=== PATIENT | female | born 1975 | race Caucasian/White ===

== ENCOUNTER 2017-12-25 13:00 | Outpatient (RCR) | payer OTHER | END 2018-01-12 | disposition home or self-care (01) | LOC: MERGE 13:00 → CARD 13:00 | PROVIDERS: ATTEND Internal Medicine Interventional Cardiology | DX: R07.9 Chest pain, unspecified (principal); R42 Dizziness and giddiness; R06.02 Shortness of breath; I10 Essential (primary) hypertension; E78.5 Hyperlipidemia, unspecified; E66.9 Obesity, unspecified | CPT/HCPCS: 93225; 93226; 93306 ==

== ENCOUNTER → 2018-01-18 | Outpatient (CLI) | payer OTHER ==
[~2018-01-18] VITALS: Ht 170.2 cm; Wt 93.9 kg
[~2018-01-18] MED LIST: CATHETER FLUSH 10 ML SYR IV PRN; REGADENOSON 0.4 MG/5 ML SYR (LEXISCAN) IV ONE
[2018-01-18 09:57] VITALS: BP 128/79
[2018-01-18 09:58] VITALS: BP 147/75
[2018-01-18 14:16] VITALS: BP 128/79
--- NOTE | 2018-01-18 14:16 | Cardiology Stress Test Report ---
Stress Test Report Type of NM Stress Test: Test Type: LEXISCAN 0.4MG/5ML Date of Procedure/Referring: Date of Procedure: Jan 18, 2018 PCP Linda Augustin MD Admitting Physician [place] Indications: Chest pain Baseline Heart Rate: 68 Baseline Blood Pressure: Blood Pressure Systolic: 128 Blood Pressure Diastolic: 79 Baseline EKG: Baseline EKG: sinus rhythm Summary & Conclusion: Summary: The patient was brought to the stress lab after informed consent was taken. Stress test was performed according to the Lexiscan protocol. 0.4 mg of IV Lexiscan was given. Low-grade exercise was performed. Baseline EKG showed sinus rhythm at 68 BPM. Initial blood pressure was 128/79 mmHg. Maximum heart rate was 114 bpm and blood pressure 155/76 mmHg. Patient did not have any chest pain, arrhythmias or ST segment changes during the stress test. 9.85 mCi of Myoview were given for rest imaging and 29.1 mCi of Myoview given for stress imaging. Transient ischemic dilatation score 1.02 , EF 70 percent. Normal wall motion. Normal myocardial perfusion imaging during rest and stress. Conclusion: Pharmacological stress test was negative for ischemia. Normal LV function with no wall motion abnormalities. Normal myocardial perfusion imaging during rest and stress. Linda AUGUSTIN MD Jan 18, 2018 2:16 pm
== END ==
LOC: EDUNIT# 07:45 → MERGE 07:45 → CARD 07:59
PROVIDERS: ATTEND Internal Medicine Interventional Cardiology
DX: R42 Dizziness and giddiness (principal); R06.02 Shortness of breath; R07.9 Chest pain, unspecified; I10 Essential (primary) hypertension; E78.5 Hyperlipidemia, unspecified; E66.9 Obesity, unspecified
CPT/HCPCS: 78452; 93017

== ENCOUNTER → 2018-02-16 | Outpatient (CLI) | payer OTHER ==
[~2018-02-16] MED LIST changes: -CATHETER FLUSH 10 ML SYR IV PRN; -REGADENOSON 0.4 MG/5 ML SYR (LEXISCAN) IV ONE; +RT-ALBUTEROL SULF 2.5 MG/3 ML PRE-MIX VIAL INH ONE
== END ==
LOC: RT 11:32
PROVIDERS: ATTEND Internal Medicine Nephrology
DX: I27.20 Pulmonary hypertension, unspecified (principal); R06.02 Shortness of breath
CPT/HCPCS: 94060; 94726; 94729

== ENCOUNTER → 2018-12-05 | Outpatient (CLI) | payer OTHER ==
[2018-12-05 07:12] LABS: CHOLESTEROL 179 MG/DL (< 200); HDL CHOLESTEROL 43 MG/DL (40-60); TRIGLYCERIDES 209 MG/DL (<150); VLDL CHOLESTEROL 42 MG/DL (5-40)
== END ==
LOC: LAB 06:43
PROVIDERS: ATTEND Internal Medicine Interventional Cardiology
DX: E78.5 Hyperlipidemia, unspecified (principal)
CPT/HCPCS: 36415; 80061

== ENCOUNTER 2019-05-06 09:39 | Emergency (ER) | payer OTHER ==
[~2019-05-06] VITALS: Ht 172 cm; Wt 96.8 kg
[2019-05-06] MEDS ORDERED: ONDANSETRON 4 MG (ZOFRAN) ORAL DISSOLVE TAB PO ONE (10:45)
[2019-05-06] MEDS ORDERED: MECLIZINE 25 MG (ANTIVERT) TAB PO ONE (10:45)
--- NOTE | 2019-05-06 10:52 | ED General ---
General Chief Complaint: Dizziness/Syncope Stated Complaint: DIZZINESS;NAUSEA Nursing Triage Note: PT PRESENTS TO ED WITH COMPLAINTS OF SUDDEN DIZZINESS STARTING ON 05/03 AND HAS SINCE DEVELOPED N/V. PT REPORTS DIZZINESS SEEMS TO IMPROVE WHEN LYING STILL BUT GETS WORSE WITH ANY MOVEMENT. PT DENIES FEELING LIKE TO ROOM IS SPINNING BUT REPORTS SHE FEELS HER BALANCE IS OFF. Nursing Sepsis Screen: No Definite Risk Source of Information: Patient Exam Limitations: No Limitations History of Present Illness Date Seen by Provider: May 06, 2019 Time Seen by Provider: 10:35 Initial Comments Patient has ER by private conveyance with chief complaint of the past week having some cough and cold syndrome with intermittent, nonproductive cough. No fevers or chills. She did have a night sweat today. She's not having any shortness of breath or history of asthma COPD. She knows that when she changes positions or rolls over she's been getting some dizziness, vertigo feeling the room move. She has not tried anything for it yet. She says the dizziness makes her nauseated and she vomits. After she vomits then she said she had sweats. She has never had vertigo before. She does feel some pressure in the ears bilaterally. No sinus pain or discharge. Allergies and Home Medications Allergies Coded Allergies: No Known Drug Allergies (Unverified , 01/18/18) Home Medications No Active Prescriptions or Reported Meds Patient Home Medication List Home Medication List Reviewed: Yes Review of Systems Review of Systems Constitutional: No chills, No diaphoresis EENTM: No ear discharge, No ear pain Respiratory: No cough, No short of breath Cardiovascular: No chest pain, No edema Gastrointestinal: No abdominal pain, No constipation, No nausea, No vomiting Genitourinary: No discharge, No dysuria Musculoskeletal: No back pain, No joint pain Skin: No pruritus, No rash Psychiatric/Neurological: Denies Headache, Denies Numbness Past Ygyfsos-Fxxvwj-Ictfid Hx Patient Social History Alcohol Use: Occasionally Uses Recreational Drug Use: No Smoking Status: Never a Smoker Recent Foreign Travel: No Contact w/Someone Who Travel: No Recent Infectious Disease Expo: No Physical Abuse: No Sexual Abuse: No Mistreated: No Fear: No Physical Exam Vital Signs Vital Signs - First Documented 05/06/19 10:01 Temp 36.0 Pulse 96 Resp 18 B/P (MAP) 144/97 (113) Pulse Ox 97 Capillary Refill : Less Than 3 Seconds Height, Weight, BMI Height: 5'7.00" Weight: 207lbs. 0.0oz. [id number]; 32.00 BMI Method: General Appearance: WD/WN, Mild Distress Eyes: Bilateral Eye Normal Inspection, Bilateral Eye PERRL, Bilateral Eye EOMI HEENT: PERRL/EOMI, Pharynx Normal, Moist Mucous Membranes Neck: Full Range of Motion, Normal Inspection Respiratory: Lungs Clear, Normal Breath Sounds, No Accessory Muscle Use, No Respiratory Distress Cardiovascular: Regular Rate, Rhythm, No Edema Extremity: Normal Capillary Refill, Normal Inspection, No Pedal Edema Neurologic/Psychiatric: Alert, Oriented x3, No Motor/Sensory Deficits Skin: Normal Color, Warm/Dry Progress/Results/Core Measures Suspected Sepsis Recent Fever Within 48 Hours: No Infection Criteria Present: None New/Unexplained Altered Menta: No Sepsis Screen: No Definite Risk SIRS Temperature: Pulse: 96 Respiratory Rate: 18 Blood Pressure 144 /97 Mean: 113 Results/Orders My Orders Orders - LISA CHEUNG Meclizine Tablet (Antivert Tablet) (05/06/19 10:45) Ondansetron Oral Dissolve Tab (Zofran (05/06/19 10:45) Vital Signs/I&O 05/06/19 10:01 Temp 36.0 Pulse 96 Resp 18 B/P (MAP) 144/97 (113) Pulse Ox 97 Capillary Refill : Less Than 3 Seconds Blood Pressure Mean: 113 Progress Note : Time: 10:50 Progress Note Plan and meclizine. We'll set her up for outpatient treatment with these medicines. We've given her return precautions. Labyrinthitis. Departure Impression Primary Impression: Vertigo Additional Impressions: Labyrinthitis of both ears Nausea & vomiting Qualified Codes: R11.2 - Nausea with vomiting, unspecified Upper respiratory tract infection Qualified Codes: J06.9 - Acute upper respiratory infection, unspecified Disposition: HOME, SELF-CARE Condition: Stable Departure-Patient Inst. Decision time for Depature: 10:51 Referrals: [facility]/JUAN RAMON (PCP) Primary Care Physician GREER LEIJA APRN (Family) Primary Care Physician Patient Instructions: Vertigo (a Type of Dizziness) (DC), Labyrinthitis Add. Discharge Instructions: Drink lots of fluids. Tylenol and ibuprofen as necessary for pain or fever. Humidifiers and vapor rubs can be helpful for your cough and cold syndrome. Meclizine 1 tablet every 6 hours as needed for dizziness. Ondansetron one tablet every 6 hours under the tongue for nausea or vomiting. All discharge instructions reviewed with patient and/or family. Voiced understanding. Scripts Ondansetron (Ondansetron Odt) 4 Mg Tab.rapdis 4 MG PO Q6H PRN for NAUSEA/VOMITING, #20 TAB 0 Refills Prov: LISA CHEUNG 05/06/19 Meclizine HCl (Meclizine HCl) 25 Mg Tablet 25 MG PO Q6H PRN for DIZZINESS, #30 TAB 0 Refills Prov: LISA CHEUNG 05/06/19 Work/School Note: Work Release Form Date Seen in the Emergency Department: May 06, 2019 Return to Work: May 10, 2019 Restrictions: No Restrictions LISA CHEUNG May 06, 2019 10:52
[2019-05-06] MEDS ORDERED: MECL-106 PO (10:53)
[2019-05-06] MEDS ORDERED: ONDA4TAB11 PO (10:53)
[2019-05-06 11:16] VITALS: BP 136/89
== END 2019-05-06 11:16 | disposition home or self-care (01) ==
LOC: EDUNIT# 09:39 → ER 09:40
DX: H83.03 Labyrinthitis, bilateral (principal); J06.9 Acute upper respiratory infection, unspecified
CPT/HCPCS: 99283

== ENCOUNTER → 2020-06-11 | Outpatient (CLI) | payer BC, OTHER ==
[~2020-06-11] MED LIST changes: +ACHD5005 PO; +IBUP-2473 PO; +LEVO750T39 PO; +MECL-149 PO; +ONDA4TAB11 PO; +ONDA8TAB13 PO; -RT-ALBUTEROL SULF 2.5 MG/3 ML PRE-MIX VIAL INH ONE
--- NOTE | 2020-06-11 08:43 | Diagnostic Imaging Report ---
INDICATION: Right upper quadrant pain Ultrasound of the right upper quadrant and gallbladder was performed in the routine fashion. The liver shows diffuse increased echogenicity compatible with fatty infiltration. Liver appears somewhat prominent in size. There is no focal liver lesion. Gallbladder is unremarkable. No stones or wall thickening. Common duct measured 4 mm. The pancreas is not well seen due to overlying gas. Visualized portions of aorta and IVC are normal. The right kidney was normal measured 11.1 cm in length. There is no ascites. Portal vein is patent with hepatopetal flow. IMPRESSION: Liver shows diffuse fatty infiltration and some enlargement. No focal liver lesion is seen. Gallbladder appears unremarkable. Dictated by: Dictated on workstation # [id number]
== END ==
LOC: RAD 08:00
PROVIDERS: ATTEND Nurse Practitioner
DX: K76.0 Fatty (change of) liver, not elsewhere classified (principal)
CPT/HCPCS: 76705

== ENCOUNTER 2020-06-12 14:35 | Emergency (ER) | payer BC ==
[~2020-06-12] VITALS: Ht 172 cm; Wt 96.0 kg
[~2020-06-12 14:35] MED LIST changes: -ACHD5005 PO; -IBUP-2473 PO; -LEVO750T39 PO; -ONDA8TAB13 PO
[2020-06-12] MEDS ORDERED: ONDANSETRON 4 MG/2 ML (SDV) Z0FRAN IVP ONE (15:00)
[2020-06-12] MEDS ORDERED: KETOROLAC 30 MG/ML VIAL IVP ONE (15:00)
--- NOTE | 2020-06-12 15:00 | ED Abdominal Pain ---
General Chief Complaint: Abdominal/GI Problems Stated Complaint: BERG,MUSCLE PAIN Nursing Triage Note: PT PRESENTS TO ED FOR RIGHT ABD. PAIN X'S 4 DAYS. PT ALSO REPORTS HEADACHE. Sepsis Screen: No Definite Risk Source of Information: Patient Exam Limitations: No Limitations History of Present Illness Date Seen by Provider: Jun 12, 2020 Time Seen by Provider: 15:00 Initial Comments To ER with right-sided abdominal pain, present for 4 days. She also has a headache. She has nausea but no vomiting. No bowel changes no dysuria. She had an outpatient ultrasound yesterday and was told looked okay. Timing/Duration: 3-4 Days Severity/Quality: Moderate Location: Generalized Abdomen Radiation: No Radiation Activities at Onset: None Associated Symptoms: Nausea/Vomiting Allergies and Home Medications Allergies Coded Allergies: No Known Drug Allergies (Unverified , 01/18/18) Home Medications Meclizine HCl 25 Mg Tablet, 25 MG PO Q6H PRN for DIZZINESS Prescribed by: LISA CHEUNG on 05/06/19 1053 Ondansetron 4 Mg Tab.rapdis, 4 MG PO Q6H PRN for NAUSEA/VOMITING Prescribed by: LISA CHEUNG on 05/06/19 1053 Patient Home Medication List Home Medication List Reviewed: Yes Review of Systems Review of Systems Constitutional: see HPI EENTM: No Symptoms Reported Respiratory: No Symptoms Reported Cardiovascular: No Symptoms Reported Gastrointestinal: See HPI, Abdominal Pain Genitourinary: No Symptoms Reported Musculoskeletal: no symptoms reported Skin: no symptoms reported Psychiatric/Neurological: No Symptoms Reported Endocrine: No Symptoms Reported Hematologic/Lymphatic: No Symptoms Reported Past Zwapfgm-Qjqgdu-Yneonm Hx Patient Social History Alcohol Use: Denies Use Smoking Status: Never a Smoker Recent Infectious Disease Expo: No Physical Exam Vital Signs Vital Signs - First Documented 06/12/20 14:45 Temp 37.1 Pulse 123 Resp 20 B/P (MAP) 143/76 (98) Pulse Ox 97 O2 Delivery Room Air Capillary Refill : Less Than 3 Seconds Height/Weight/BMI Height: 5'7.00" Weight: 207lbs. 0.0oz. [id number]; 32.00 BMI Method: General Appearance: WD/WN, no apparent distress Respiratory: lungs clear, normal breath sounds, no respiratory distress, no accessory muscle use Gastrointestinal: normal bowel sounds, soft, tenderness Extremities: normal range of motion, non-tender Neurologic/Psychiatric: alert, normal mood/affect, oriented x 3 Skin: normal color, warm/dry Progress/Results/Core Measures Results/Orders Lab Results Laboratory Tests Test 06/12/20 15:00 06/12/20 16:01 Range/Units White Blood Count 10.0 4.3-11.0 10^3/uL Red Blood Count 4.24 3.80-5.11 10^6/uL Hemoglobin 13.4 11.5-16.0 g/dL Hematocrit 38 35-52 % Mean Corpuscular Volume 90 80-99 fL Mean Corpuscular Hemoglobin 32 25-34 pg Mean Corpuscular Hemoglobin Concent 35 32-36 g/dL Red Cell Distribution Width 12.2 10.0-14.5 % Platelet Count 145 130-400 10^3/uL Mean Platelet Volume 10.0 9.0-12.2 fL Immature Granulocyte % (Auto) 1 % Neutrophils (%) (Auto) 80 H 42-75 % Lymphocytes (%) (Auto) 12 12-44 % Monocytes (%) (Auto) 7 0-12 % Eosinophils (%) (Auto) 0 0-10 % Basophils (%) (Auto) 0 0-10 % Neutrophils # (Auto) 8.0 H 1.8-7.8 10^3/uL Lymphocytes # (Auto) 1.2 1.0-4.0 10^3/uL Monocytes # (Auto) 0.7 0.0-1.0 10^3/uL Eosinophils # (Auto) 0.0 0.0-0.3 10^3/uL Basophils # (Auto) 0.0 0.0-0.1 10^3/uL Immature Granulocyte # (Auto) 0.1 0.0-0.1 10^3/uL Sodium Level 129 L 135-145 MMOL/L Potassium Level 3.6 3.6-5.0 MMOL/L Chloride Level 97 L 98-107 MMOL/L Carbon Dioxide Level 22 21-32 MMOL/L Anion Gap 10 5-14 MMOL/L Blood Urea Nitrogen 6 L 7-18 MG/DL Creatinine 1.02 0.60-1.30 MG/DL Estimat Glomerular Filtration Rate 58 BUN/Creatinine Ratio 6 Glucose Level 259 H 70-105 MG/DL Calcium Level 9.3 8.5-10.1 MG/DL Corrected Calcium 9.6 8.5-10.1 MG/DL Total Bilirubin 0.6 0.1-1.0 MG/DL Aspartate Amino Transf (AST/SGOT) 43 H 5-34 U/L Alanine Aminotransferase (ALT/SGPT) 68 H 0-55 U/L Alkaline Phosphatase 112 40-136 U/L Total Protein 7.3 6.4-8.2 GM/DL Albumin 3.6 3.2-4.5 GM/DL Urine Color YELLOW Urine Clarity SL CLOUDY Urine pH 6.5 5-9 Urine Specific Devers <=1.005 1.016-1.022 Urine Protein 1+ H NEGATIVE Urine Glucose (UA) NEGATIVE NEGATIVE Urine Ketones NEGATIVE NEGATIVE Urine Nitrite NEGATIVE NEGATIVE Urine Bilirubin NEGATIVE NEGATIVE Urine Urobilinogen 2.0 < = 1.0 MG/DL Urine Leukocyte Esterase NEGATIVE NEGATIVE Urine RBC (Auto) NEGATIVE NEGATIVE Urine RBC NONE /HPF Urine WBC 5-10 H /HPF Urine Squamous Epithelial Cells 10-25 H /HPF Urine Crystals NONE /LPF Urine Bacteria FEW H /HPF Urine Casts NONE /LPF Urine Mucus NEGATIVE /LPF Urine Culture Indicated NO My Orders Orders - LIZETH DOWNEY APRN Cbc With Automated Diff (06/12/20 14:58) Comprehensive Metabolic Panel (06/12/20 14:58) Ua Culture If Indicated (06/12/20 14:58) Ed Iv/Invasive Line Start (06/12/20 14:58) Ct Abdomen/Pelvis W (06/12/20 14:58) Ketorolac Injection (Toradol Injection) (06/12/20 15:00) Ondansetron Injection (Zofran Injectio (06/12/20 15:00) Iohexol Injection (Omnipaque 350 Mg/Ml 1 (06/12/20 15:15) Received Contrast (Hold Metformin- Contr (06/12/20 15:15) Ns (Ivpb) (Sodium Chloride 0.9% Ivpb Bag (06/12/20 15:15) Lactated Ringers (Lr 1000 Ml Iv Solution (06/12/20 15:45) Ceftriaxone For Iv Use (Rocephin For I (06/12/20 16:00) Fentanyl Injection (Sublimaze Injection (06/12/20 16:15) Medications Given in ED Current Medications Medications Dose Ordered Sig/Maxim Route Start Time Stop Time Status Last Admin Dose Admin Iohexol 100 ml ONCE ONCE IV 06/12/20 15:15 06/12/20 15:18 DC 06/12/20 15:26 100 ML Ketorolac Tromethamine 15 mg ONCE ONCE IVP 06/12/20 15:00 06/12/20 15:01 DC 06/12/20 15:12 15 MG Ondansetron HCl 4 mg ONCE ONCE IVP 06/12/20 15:00 06/12/20 15:01 DC 06/12/20 15:15 4 MG Sodium Chloride 100 ml ONCE ONCE IV 06/12/20 15:15 06/12/20 15:18 DC 06/12/20 15:26 80 ML Vital Signs/I&O 06/12/20 14:45 Temp 37.1 Pulse 123 Resp 20 B/P (MAP) 143/76 (98) Pulse Ox 97 O2 Delivery Room Air Blood Pressure Mean: 98 Departure Communication (Admissions) Nausea is much better after the Zofran. She does have tachycardia at 120 but a normal white count no fevers now or at any time. She will be appropriate for outpatient therapy. I did order a forced urine culture. We will give 2 g of Rocephin here then outpatient prescription for Levaquin hydrocodone and Zofran. Impression Primary Impression: Pyelonephritis Disposition: HOME, SELF-CARE Condition: Stable Departure-Patient Inst. Decision time for Depature: 16:24 Referrals: [facility]/JUAN RAMON (PCP) Primary Care Physician GREER LEIJA APRN (Family) Primary Care Physician Patient Instructions: Kidney Infection Add. Discharge Instructions: 1. Antibiotics as directed in addition to pain medication and nausea medication. Return to ER for any fevers intolerable pain or any other concerns. All discharge instructions reviewed with patient and/or family. Voiced under standing. Scripts Hydrocodone/Acetaminophen (Hydrocodone-Acetamin 5-325 mg) 1 Each Tablet 1 TAB PO Q4H PRN for PAIN-MODERATE (5-7), #14 TAB Prov: LIZETH DOWNEY APRN 06/12/20 Levofloxacin (Levofloxacin) 750 Mg Tablet 750 MG PO DAILY, #7 TAB Prov: LIZETH DOWNEY APRN 06/12/20 Ondansetron (Ondansetron Odt) 8 Mg Tab.rapdis 8 MG PO Q6H PRN for NAUSEA/VOMITING, #14 TAB Prov: LIZETH DOWNEY APRN 06/12/20 LIZETH DOWNEY APRN Jun 12, 2020 15:00
[2020-06-12 15:08] LABS: BASOPHILS % (AUTO) 0 % (0-10); EOSINOPHILS % (AUTO) 0 % (0-10); HEMATOCRIT 38 % (35-52); HEMOGLOBIN 13.4 g/dL (11.5-16.0); LYMPHOCYTES # (AUTO) 1.2 10^3/uL (1.0-4.0); LYMPHOCYTES % (AUTO) 12 % (12-44); MEAN CORPUSCULAR HEMOGLOBIN 32 pg (25-34); MEAN CORPUSCULAR HGB CONC 35 g/dL (32-36); MEAN CORPUSCULAR VOLUME 90 fL (80-99); MONOCYTES # (AUTO) 0.7 10^3/uL (0.0-1.0); MONOCYTES % (AUTO) 7 % (0-12); NEUTROPHILS % (AUTO) 80 % (42-75); PLATELET COUNT 145 10^3/uL (130-400)
[2020-06-12] MEDS ORDERED: NS 100 ML (IVPB) BAG IV ONE (15:15)
[2020-06-12] MEDS ORDERED: HOLD METFORMIN - RECEIVED CONTRAST 20 ML VIAL IV SCH (15:15)
[2020-06-12] MEDS ORDERED: IOHEXOL 350 MG/ML 100 ML (OMNIPAQUE 350) VIAL IV ONE (15:15)
[2020-06-12 15:21] LABS: ALBUMIN 3.6 GM/DL (3.2-4.5); POTASSIUM 3.6 MMOL/L (3.6-5.0)
[2020-06-12 15:22] LABS: CALCIUM 9.3 MG/DL (8.5-10.1)
[2020-06-12 15:23] LABS: TOTAL PROTEIN 7.3 GM/DL (6.4-8.2)
[2020-06-12 15:25] LABS: BILIRUBIN,TOTAL 0.6 MG/DL (0.1-1.0)
[2020-06-12 15:27] LABS: CREATININE SERUM 1.02 MG/DL (0.60-1.30)
[2020-06-12] MEDS ORDERED: LACTATED RINGERS 1,000 ML IV SCH (15:45)
--- NOTE | 2020-06-12 15:49 | Diagnostic Imaging Report ---
PROCEDURE: CT abdomen and pelvis with contrast. TECHNIQUE: Multiple contiguous axial images were obtained through the abdomen and pelvis after administration of intravenous contrast. Auto Exposure Controls were utilized during the CT exam to meet ALARA standards for radiation dose reduction. All CT scans use one or more of the following dose optimizing techniques: automated exposure control, MA and/or KvP adjustment based on patient size and exam type or iterative reconstruction. INDICATION: Right abdominal pain for four days. COMPARISON: None. FINDINGS: The lung bases are clear. The heart is normal in size. There is no pericardial effusion. The liver demonstrates no focal lesions. There is suggestion of fatty infiltration with relative sparing about the gallbladder fossa. The spleen appears normal. The pancreas is normal. The adrenal glands appear normal. The right kidney has a heterogeneous enhancement, with ill-defined areas of cortical hypoenhancement. Enhancement of the left kidney is mostly normal, with a subtle area of hypoenhancement at the superoposterior cortex. There is no hydronephrosis. There is mild perirenal fat stranding of the right kidney. There is mild periureteral fat stranding on the right. No calculi are seen. There is significant thickening of the urinary bladder, which may be exacerbated by the nondistention. The bowel loops are nondistended without obstruction. The appendix is normal. No free fluid or free air is seen. No acute osseous abnormality is seen. IMPRESSION: 1. Acute pyelonephritis of the right kidney, with suspected early pyelonephritis in the superior left kidney. 2. Wall thickening of the urinary bladder, likely due to infection. 3. Fatty infiltration of the liver. Dictated by: Dictated on workstation # [id number]
[2020-06-12] MEDS ORDERED: cefTRIAXone FOR IV USE 2,000 MG in WATER (STERILE) FOR INJECTION 20 ML IV ONE (16:00)
[2020-06-12 16:10] LABS: BILIRUBIN,URINE NEGATIVE (NEGATIVE); COLOR,URINE YELLOW; GLUCOSE, URINE (UA) NEGATIVE (NEGATIVE); KETONES,URINE NEGATIVE (NEGATIVE); LEUKOCYTE ESTERASE ,URINE NEGATIVE (NEGATIVE); NITRITE,URINE NEGATIVE (NEGATIVE); PH,URINE 6.5 (5-9); PROTEIN,URINE 1+ (NEGATIVE)
[2020-06-12] MEDS ORDERED: fentaNYL INJECTION 100 MCG/2 ML AMP IVP ONE (16:15)
[2020-06-12 16:16] LABS: CLARITY,URINE SL CLOUDY
[2020-06-12 16:18] LABS: BACTERIA,URINE FEW /HPF
[2020-06-12] MEDS ORDERED: ONDA8TAB13 PO (16:26)
[2020-06-12] MEDS ORDERED: LEVO750T39 PO (16:26)
[2020-06-12] MEDS ORDERED: ACHD5005 PO (16:27)
[2020-06-12 17:06] VITALS: BP 143/76
[2020-06-15] MEDS ORDERED: ONDA8TAB13 PO (10:32)
[2020-06-15] MEDS ORDERED: ACHD5005 PO (10:32)
[2020-06-15] MEDS ORDERED: IBUP-2473 PO (10:32)
[2020-06-15] MEDS ORDERED: LEVO750T39 PO (10:32)
== END 2020-06-12 17:06 ==
LOC: EDUNIT# 14:35 → ER 14:36
DX: N12 Tubulo-interstitial nephritis, not specified as acute or chronic (principal)
CPT/HCPCS: 36415; 74177; 80053; 81000; 85025; 87088